=== PATIENT | male | born 1970 | race Caucasian/White ===

== ENCOUNTER 2023-07-24 17:57 | Emergency (ER) | payer BC ==
[~2023-07-24] VITALS: Ht 188 cm; Wt 127.0 kg
[2023-07-24 18:14] VITALS: BP 139/86
[2023-07-24] MEDS ORDERED: Bactrim Ds Tab1 EACH PO (18:56)
== END 2023-07-24 19:37 | disposition home or self-care (01) ==
LOC: ER 17:57
DX: L03.022 Acute lymphangitis of left finger (principal); L03.012 Cellulitis of left finger; E11.65 Type 2 diabetes mellitus with hyperglycemia
CPT/HCPCS: 82947; 99283; A9270

== ENCOUNTER 2024-06-17 01:11 | Day surgery (SDC) | payer BC ==
[~2024-06-17 01:11] MED LIST: Bactrim Ds Tab1 EACH PO; CEPH500 PO; GLIP10 PO; Lisinopril2.5 MG; METFORMIN HCL500 M1 PO; METFORMIN HCL500 M2 PO; METO25ER PO; PIOGLITAZONE HC30 M1 PO; Prinivil10 MG PO; SULTRIDS PO; Simvastatin40 MG PO; TADALAFIL20 M1 PO; TRAM50 PO; XARELTO20 MG PO
[2024-06-17] MEDS ORDERED: DAPTOMYCIN IV SCH (06:00)
[2024-06-17] MEDS ORDERED: NS IV SCH (06:00)
[2024-06-17] MEDS ORDERED: ACET500 PO (10:12)
[2024-06-17] MEDS ORDERED: Amiodarone HCl200 MG PO (10:13)
[2024-06-17] MEDS ORDERED: Aspir 8181 MG PO (10:14)
[2024-06-17] MEDS ORDERED: ATOR40TA PO (10:14)
[2024-06-17] MEDS ORDERED: Calcium Carbon500 MG PO (10:15)
[2024-06-17] MEDS ORDERED: CUBICIN RF500 M1 IV (10:16)
[2024-06-17] MEDS ORDERED: DICLOFENAC SOD100 GM TOP (10:17)
[2024-06-17] MEDS ORDERED: DOXA4 PO (10:18)
[2024-06-17] MEDS ORDERED: BASAGLAR K100 UNIT/1 SC (10:19)
[2024-06-17] MEDS ORDERED: HUMALOG KW100 UNIT/1 SC (10:20)
[2024-06-17] MEDS ORDERED: LIDO700A20 TOP (10:21)
[2024-06-17] MEDS ORDERED: MAGNESIUM OXID500 MG PO (10:22)
[2024-06-17] MEDS ORDERED: MIRT15 PO (10:24)
[2024-06-17 10:54] VITALS: BP 110/70
== END 2024-06-17 11:22 | disposition home or self-care (01) ==
LOC: ATC 01:11
DX: G06.1 Intraspinal abscess and granuloma (principal); I48.91 Unspecified atrial fibrillation; E11.9 Type 2 diabetes mellitus without complications; Z79.84 Long term (current) use of oral hypoglycemic drugs; Z79.899 Other long term (current) drug therapy
CPT/HCPCS: 96365; J0878

== ENCOUNTER 2024-06-18 10:31 | Day surgery (SDC) | payer BC ==
[~2024-06-18 10:31] MED LIST changes: +ACET500 PO; +ATOR40TA PO; +Amiodarone HCl200 MG PO; +Aspir 8181 MG PO; +BASAGLAR K100 UNIT/1 SC; +CUBICIN RF500 M1 IV; +Calcium Carbon500 MG PO; +DAPTOMYCIN IV SCH; +DICLOFENAC SOD100 GM TOP; +DOXA4 PO; +HUMALOG KW100 UNIT/1 SC; +LIDO700A20 TOP; +MAGNESIUM OXID500 MG PO; +MIRT15 PO; +NS IV SCH
[2024-06-18 10:38] VITALS: BP 103/68
== END 2024-06-18 11:11 | disposition home or self-care (01) ==
LOC: ATC 10:31
DX: G06.1 Intraspinal abscess and granuloma (principal); E11.9 Type 2 diabetes mellitus without complications; I48.91 Unspecified atrial fibrillation; Z79.899 Other long term (current) drug therapy; Z79.84 Long term (current) use of oral hypoglycemic drugs
CPT/HCPCS: 96365; J0878

== ENCOUNTER 2024-06-19 02:04 | Day surgery (SDC) | payer BC ==
[~2024-06-19 02:04] MED LIST changes: -DAPTOMYCIN IV SCH; -NS IV SCH
[2024-06-19] MEDS ORDERED: NS IV SCH (06:00)
[2024-06-19] MEDS ORDERED: DAPTOMYCIN IV SCH (06:00)
[2024-06-19 10:45] VITALS: BP 131/85
== END 2024-06-19 11:07 | disposition home or self-care (01) ==
LOC: ATC 02:04
DX: G06.1 Intraspinal abscess and granuloma (principal); I48.91 Unspecified atrial fibrillation; Z79.899 Other long term (current) drug therapy
CPT/HCPCS: 96365; J0878

== ENCOUNTER 2024-06-20 01:57 | Day surgery (SDC) | payer BC ==
[2024-06-20] MEDS ORDERED: DAPTOMYCIN IV SCH (06:00)
[2024-06-20] MEDS ORDERED: NS IV SCH (06:00)
[2024-06-20 10:45] VITALS: BP 117/70
== END 2024-06-20 11:17 | disposition home or self-care (01) ==
LOC: ATC 01:57
DX: G06.1 Intraspinal abscess and granuloma (principal); E11.69 Type 2 diabetes mellitus with other specified complication; M46.22 Osteomyelitis of vertebra, cervical region; D64.9 Anemia, unspecified; E66.9 Obesity, unspecified; Z68.32 Body mass index [BMI] 32.0-32.9, adult; Z79.4 Long term (current) use of insulin; Z79.84 Long term (current) use of oral hypoglycemic drugs; Z79.899 Other long term (current) drug therapy; Z86.73 Personal history of transient ischemic attack (TIA), and cerebral infarction without residual deficits
CPT/HCPCS: 96365; J0878

== ENCOUNTER 2024-06-21 02:47 | Day surgery (SDC) | payer BC ==
[2024-06-21] MEDS ORDERED: NS IV SCH (06:00)
[2024-06-21] MEDS ORDERED: DAPTOMYCIN IV SCH (06:00)
[2024-06-21 10:36] VITALS: BP 97/78
== END 2024-06-21 11:00 | disposition home or self-care (01) ==
LOC: ATC 02:47
DX: G06.1 Intraspinal abscess and granuloma (principal); M46.22 Osteomyelitis of vertebra, cervical region; I48.91 Unspecified atrial fibrillation; E11.9 Type 2 diabetes mellitus without complications; D64.9 Anemia, unspecified; Z79.01 Long term (current) use of anticoagulants; Z79.4 Long term (current) use of insulin; Z79.84 Long term (current) use of oral hypoglycemic drugs; Z79.899 Other long term (current) drug therapy; Z86.73 Personal history of transient ischemic attack (TIA), and cerebral infarction without residual deficits
CPT/HCPCS: 96365; J0878

== ENCOUNTER 2024-06-22 02:27 | Day surgery (SDC) | payer BC ==
[2024-06-22] MEDS ORDERED: DAPTOMYCIN IV SCH (06:00)
[2024-06-22] MEDS ORDERED: NS IV SCH (06:00)
[2024-06-22 10:41] VITALS: BP 105/68
== END 2024-06-22 11:07 | disposition home or self-care (01) ==
LOC: ATC 02:27
DX: G06.1 Intraspinal abscess and granuloma (principal); I48.91 Unspecified atrial fibrillation; E11.9 Type 2 diabetes mellitus without complications; Z79.899 Other long term (current) drug therapy
CPT/HCPCS: 96374; J0878

== ENCOUNTER 2024-06-23 00:42 | Day surgery (SDC) | payer BC ==
[2024-06-23] MEDS ORDERED: NS IV SCH (06:00)
[2024-06-23] MEDS ORDERED: DAPTOMYCIN IV SCH (06:00)
[2024-06-23] MEDS ORDERED: DAPTOmycin 900 MG in NS 50 ML IV SCH (07:00)
[2024-06-23 10:58] VITALS: BP 112/77
== END 2024-06-23 11:20 | disposition home or self-care (01) ==
LOC: ATC 00:42
DX: G06.1 Intraspinal abscess and granuloma (principal); I48.91 Unspecified atrial fibrillation; E11.9 Type 2 diabetes mellitus without complications; Z79.899 Other long term (current) drug therapy
CPT/HCPCS: 96365; J0878

== ENCOUNTER 2024-06-24 00:26 | Day surgery (SDC) | payer BC ==
[2024-06-24] MEDS ORDERED: DAPTOMYCIN IV SCH (06:00)
[2024-06-24] MEDS ORDERED: NS IV SCH (06:00)
[2024-06-24 10:39] VITALS: BP 111/82
== END 2024-06-24 10:58 | disposition home or self-care (01) ==
LOC: ATC 00:26
DX: G06.1 Intraspinal abscess and granuloma (principal); I48.91 Unspecified atrial fibrillation; E11.9 Type 2 diabetes mellitus without complications; D64.9 Anemia, unspecified; E66.9 Obesity, unspecified; Z79.01 Long term (current) use of anticoagulants; Z68.32 Body mass index [BMI] 32.0-32.9, adult; Z86.73 Personal history of transient ischemic attack (TIA), and cerebral infarction without residual deficits
CPT/HCPCS: 96365; J0878

== ENCOUNTER 2024-06-25 10:31 | Day surgery (SDC) | payer BC ==
[~2024-06-25 10:31] MED LIST changes: +DAPTOMYCIN IV SCH; +NS IV SCH
[2024-06-25 10:36] VITALS: BP 121/74
== END 2024-06-25 10:55 | disposition home or self-care (01) ==
LOC: ATC 10:31
DX: G06.1 Intraspinal abscess and granuloma (principal); I48.91 Unspecified atrial fibrillation; E11.9 Type 2 diabetes mellitus without complications
CPT/HCPCS: 96365; J0878

== ENCOUNTER 2024-06-26 02:22 | Day surgery (SDC) | payer BC ==
[~2024-06-26 02:22] MED LIST changes: -DAPTOMYCIN IV SCH; -NS IV SCH
[2024-06-26] MEDS ORDERED: NS IV SCH (06:00)
[2024-06-26] MEDS ORDERED: DAPTOMYCIN IV SCH (06:00)
[2024-06-26 10:38] VITALS: BP 97/58
== END 2024-06-26 11:03 | disposition home or self-care (01) ==
LOC: ATC 02:22
DX: G06.1 Intraspinal abscess and granuloma (principal); I48.91 Unspecified atrial fibrillation; E11.9 Type 2 diabetes mellitus without complications; D64.9 Anemia, unspecified; E66.9 Obesity, unspecified; Z68.32 Body mass index [BMI] 32.0-32.9, adult; Z79.84 Long term (current) use of oral hypoglycemic drugs; Z79.01 Long term (current) use of anticoagulants; Z79.4 Long term (current) use of insulin; Z79.899 Other long term (current) drug therapy; Z86.73 Personal history of transient ischemic attack (TIA), and cerebral infarction without residual deficits
CPT/HCPCS: 96365; J0878

== ENCOUNTER 2024-06-27 04:47 | Day surgery (SDC) | payer BC ==
[2024-06-27] MEDS ORDERED: DAPTOMYCIN IV SCH (06:00)
[2024-06-27] MEDS ORDERED: NS IV SCH (06:00)
[2024-06-27 10:35] VITALS: BP 96/69
== END 2024-06-27 10:55 | disposition home or self-care (01) ==
LOC: ATC 04:47
DX: G06.1 Intraspinal abscess and granuloma (principal); I48.91 Unspecified atrial fibrillation; E11.9 Type 2 diabetes mellitus without complications; E66.9 Obesity, unspecified; Z79.899 Other long term (current) drug therapy; Z79.4 Long term (current) use of insulin; Z79.84 Long term (current) use of oral hypoglycemic drugs
CPT/HCPCS: 96365; J0878

== ENCOUNTER 2024-06-29 03:31 | Day surgery (SDC) | payer BC ==
[2024-06-29] MEDS ORDERED: DAPTOMYCIN IV SCH (06:00)
[2024-06-29] MEDS ORDERED: NS IV SCH (06:00)
[2024-06-29 10:46] VITALS: BP 116/73
== END 2024-06-29 11:18 | disposition home or self-care (01) ==
LOC: ATC 03:31
DX: G06.1 Intraspinal abscess and granuloma (principal); I48.91 Unspecified atrial fibrillation; E11.9 Type 2 diabetes mellitus without complications; Z79.899 Other long term (current) drug therapy
CPT/HCPCS: 96365; J0878

== ENCOUNTER 2024-06-30 02:47 | Day surgery (SDC) | payer BC ==
[2024-06-30] MEDS ORDERED: DAPTOMYCIN IV SCH (06:00)
[2024-06-30] MEDS ORDERED: NS IV SCH (06:00)
[2024-06-30 10:37] VITALS: BP 122/81
== END 2024-06-30 11:00 | disposition home or self-care (01) ==
LOC: ATC 02:47
DX: G06.1 Intraspinal abscess and granuloma (principal); I48.91 Unspecified atrial fibrillation; E11.9 Type 2 diabetes mellitus without complications; D64.9 Anemia, unspecified; Z79.84 Long term (current) use of oral hypoglycemic drugs; Z79.4 Long term (current) use of insulin; Z79.01 Long term (current) use of anticoagulants; Z86.73 Personal history of transient ischemic attack (TIA), and cerebral infarction without residual deficits
CPT/HCPCS: 96365; J0878

== ENCOUNTER 2024-07-01 00:05 | Day surgery (SDC) | payer BC ==
[2024-07-01] MEDS ORDERED: NS IV SCH (06:00)
[2024-07-01] MEDS ORDERED: DAPTOMYCIN IV SCH (06:00)
[2024-07-01 10:41] VITALS: BP 108/73
== END 2024-07-01 11:05 | disposition home or self-care (01) ==
LOC: ATC 00:05
DX: G06.1 Intraspinal abscess and granuloma (principal); E11.9 Type 2 diabetes mellitus without complications; I48.91 Unspecified atrial fibrillation; Z79.01 Long term (current) use of anticoagulants; Z79.4 Long term (current) use of insulin; Z79.84 Long term (current) use of oral hypoglycemic drugs; Z79.899 Other long term (current) drug therapy; Z86.73 Personal history of transient ischemic attack (TIA), and cerebral infarction without residual deficits
CPT/HCPCS: 96365; J0878

== ENCOUNTER 2024-07-02 10:27 | Day surgery (SDC) | payer BC ==
[~2024-07-02 10:27] MED LIST changes: +DAPTOMYCIN IV SCH; +NS IV SCH
[2024-07-02 10:38] VITALS: BP 122/77
== END 2024-07-02 11:00 | disposition home or self-care (01) ==
LOC: ATC 10:27
DX: G06.1 Intraspinal abscess and granuloma (principal); E11.9 Type 2 diabetes mellitus without complications; I48.91 Unspecified atrial fibrillation; D64.9 Anemia, unspecified; Z79.01 Long term (current) use of anticoagulants; Z86.73 Personal history of transient ischemic attack (TIA), and cerebral infarction without residual deficits
CPT/HCPCS: 96365; J0878

== ENCOUNTER 2024-07-03 01:48 | Day surgery (SDC) | payer BC ==
[~2024-07-03 01:48] MED LIST changes: -DAPTOMYCIN IV SCH; -NS IV SCH
[2024-07-03] MEDS ORDERED: NS IV SCH (06:00)
[2024-07-03] MEDS ORDERED: DAPTOMYCIN IV SCH (06:00)
[2024-07-03 11:01] VITALS: BP 98/66
== END 2024-07-03 11:01 | disposition home or self-care (01) ==
LOC: ATC 01:48
DX: G06.1 Intraspinal abscess and granuloma (principal); I48.91 Unspecified atrial fibrillation; E11.9 Type 2 diabetes mellitus without complications; D64.9 Anemia, unspecified; Z79.01 Long term (current) use of anticoagulants; Z86.73 Personal history of transient ischemic attack (TIA), and cerebral infarction without residual deficits
CPT/HCPCS: 96365; J0878

== ENCOUNTER 2024-07-04 01:56 | Day surgery (SDC) | payer BC ==
[2024-07-04] MEDS ORDERED: NS IV SCH (06:00)
[2024-07-04] MEDS ORDERED: DAPTOMYCIN IV SCH (06:00)
[2024-07-04 10:39] VITALS: BP 118/83
== END 2024-07-04 11:02 | disposition home or self-care (01) ==
LOC: ATC 01:56
DX: G06.1 Intraspinal abscess and granuloma (principal); I48.91 Unspecified atrial fibrillation; E11.9 Type 2 diabetes mellitus without complications; Z79.899 Other long term (current) drug therapy
CPT/HCPCS: 96365; J0878

== ENCOUNTER 2024-07-05 04:05 | Day surgery (SDC) | payer BC ==
[2024-07-05] MEDS ORDERED: DAPTOMYCIN IV SCH (06:00)
[2024-07-05] MEDS ORDERED: NS IV SCH (06:00)
[2024-07-05 10:45] VITALS: BP 123/82
== END 2024-07-05 11:15 | disposition home or self-care (01) ==
LOC: ATC 04:05
DX: G06.1 Intraspinal abscess and granuloma (principal); I48.91 Unspecified atrial fibrillation; E11.9 Type 2 diabetes mellitus without complications; D64.9 Anemia, unspecified; Z79.01 Long term (current) use of anticoagulants; Z79.4 Long term (current) use of insulin; Z79.84 Long term (current) use of oral hypoglycemic drugs; Z79.899 Other long term (current) drug therapy; Z86.73 Personal history of transient ischemic attack (TIA), and cerebral infarction without residual deficits
CPT/HCPCS: 96365; J0878

== ENCOUNTER 2024-07-06 01:48 | Day surgery (SDC) | payer BC ==
[2024-07-06] MEDS ORDERED: NS IV SCH (06:00)
[2024-07-06] MEDS ORDERED: DAPTOMYCIN IV SCH (06:00)
[2024-07-06 10:38] VITALS: BP 123/86
== END 2024-07-06 11:05 | disposition home or self-care (01) ==
LOC: ATC 01:48
DX: G06.1 Intraspinal abscess and granuloma (principal); I48.91 Unspecified atrial fibrillation; E11.9 Type 2 diabetes mellitus without complications; D50.9 Iron deficiency anemia, unspecified; E66.9 Obesity, unspecified; Z68.32 Body mass index [BMI] 32.0-32.9, adult; Z79.01 Long term (current) use of anticoagulants; Z79.84 Long term (current) use of oral hypoglycemic drugs; Z79.899 Other long term (current) drug therapy; Z86.73 Personal history of transient ischemic attack (TIA), and cerebral infarction without residual deficits
CPT/HCPCS: 96365; J0878

== ENCOUNTER 2024-07-07 04:27 | Day surgery (SDC) | payer BC ==
[2024-07-07] MEDS ORDERED: DAPTOMYCIN IV SCH (06:00)
[2024-07-07] MEDS ORDERED: NS IV SCH (06:00)
[2024-07-07 10:39] VITALS: BP 119/59
== END 2024-07-07 11:00 | disposition home or self-care (01) ==
LOC: ATC 04:27
DX: G06.1 Intraspinal abscess and granuloma (principal); E11.9 Type 2 diabetes mellitus without complications; I48.91 Unspecified atrial fibrillation; E66.811 Obesity, class 1; Z68.32 Body mass index [BMI] 32.0-32.9, adult; Z79.84 Long term (current) use of oral hypoglycemic drugs; Z79.01 Long term (current) use of anticoagulants; Z79.4 Long term (current) use of insulin; Z79.899 Other long term (current) drug therapy; Z86.73 Personal history of transient ischemic attack (TIA), and cerebral infarction without residual deficits
CPT/HCPCS: 96365; J0878

== ENCOUNTER 2024-07-10 00:39 | Day surgery (SDC) | payer BC ==
[2024-07-10] MEDS ORDERED: NS IV SCH (06:00)
[2024-07-10] MEDS ORDERED: DAPTOMYCIN IV SCH (06:00)
[2024-07-10 10:56] VITALS: BP 106/74
== END 2024-07-10 11:08 | disposition home or self-care (01) ==
LOC: ATC 00:39
DX: G06.1 Intraspinal abscess and granuloma (principal); E11.9 Type 2 diabetes mellitus without complications; I48.91 Unspecified atrial fibrillation; Z79.01 Long term (current) use of anticoagulants; Z79.4 Long term (current) use of insulin; Z79.84 Long term (current) use of oral hypoglycemic drugs; Z79.899 Other long term (current) drug therapy; Z86.73 Personal history of transient ischemic attack (TIA), and cerebral infarction without residual deficits
CPT/HCPCS: 96365; J0878

== ENCOUNTER 2024-07-11 02:47 | Day surgery (SDC) | payer BC ==
[2024-07-11] MEDS ORDERED: DAPTOMYCIN IV SCH (07:15)
[2024-07-11] MEDS ORDERED: NS IV SCH (07:15)
[2024-07-11 10:54] VITALS: BP 107/79
== END 2024-07-11 11:20 | disposition home or self-care (01) ==
LOC: ATC 02:47
DX: G06.1 Intraspinal abscess and granuloma (principal); E11.9 Type 2 diabetes mellitus without complications; I48.91 Unspecified atrial fibrillation; D64.9 Anemia, unspecified; Z79.4 Long term (current) use of insulin; Z79.84 Long term (current) use of oral hypoglycemic drugs; Z79.899 Other long term (current) drug therapy; Z86.73 Personal history of transient ischemic attack (TIA), and cerebral infarction without residual deficits
CPT/HCPCS: 96365; J0878

== ENCOUNTER 2024-07-12 03:53 | Day surgery (SDC) | payer BC ==
[2024-07-12] MEDS ORDERED: DAPTOMYCIN IV SCH (06:00)
[2024-07-12] MEDS ORDERED: NS IV SCH (06:00)
[2024-07-12 10:35] VITALS: BP 129/85
== END 2024-07-12 10:59 | disposition home or self-care (01) ==
LOC: ATC 03:53
DX: G06.1 Intraspinal abscess and granuloma (principal); E11.9 Type 2 diabetes mellitus without complications; I48.91 Unspecified atrial fibrillation; Z79.899 Other long term (current) drug therapy
CPT/HCPCS: 96365; J0878

== ENCOUNTER 2024-07-13 05:19 | Day surgery (SDC) | payer BC ==
[2024-07-13] MEDS ORDERED: NS IV SCH (06:00)
[2024-07-13] MEDS ORDERED: DAPTOMYCIN IV SCH (06:00)
[2024-07-13 10:43] VITALS: BP 123/84
== END 2024-07-13 11:09 | disposition home or self-care (01) ==
LOC: ATC 05:19
DX: G06.1 Intraspinal abscess and granuloma (principal); I48.91 Unspecified atrial fibrillation; E11.9 Type 2 diabetes mellitus without complications; Z79.899 Other long term (current) drug therapy
CPT/HCPCS: 96365; J0878

== ENCOUNTER 2024-07-14 03:31 | Day surgery (SDC) | payer BC ==
[2024-07-14] MEDS ORDERED: NS IV SCH (06:00)
[2024-07-14] MEDS ORDERED: DAPTOMYCIN IV SCH (06:00)
[2024-07-14 10:39] VITALS: BP 119/81
== END 2024-07-14 11:00 | disposition home or self-care (01) ==
LOC: ATC 03:31
DX: G06.1 Intraspinal abscess and granuloma (principal); I48.91 Unspecified atrial fibrillation; E11.9 Type 2 diabetes mellitus without complications; Z79.4 Long term (current) use of insulin; Z79.84 Long term (current) use of oral hypoglycemic drugs; Z79.899 Other long term (current) drug therapy; D64.9 Anemia, unspecified
CPT/HCPCS: 96365; J0878

== ENCOUNTER 2024-07-15 02:14 | Day surgery (SDC) | payer BC ==
[2024-07-15] MEDS ORDERED: DAPTOMYCIN IV SCH (06:00)
[2024-07-15] MEDS ORDERED: NS IV SCH (06:00)
[2024-07-15 10:48] VITALS: BP 109/67
== END 2024-07-15 11:29 | disposition home or self-care (01) ==
LOC: ATC 02:14
DX: G06.1 Intraspinal abscess and granuloma (principal); I48.91 Unspecified atrial fibrillation; E11.9 Type 2 diabetes mellitus without complications; Z79.4 Long term (current) use of insulin; Z79.84 Long term (current) use of oral hypoglycemic drugs; Z79.899 Other long term (current) drug therapy
CPT/HCPCS: 96365; J0878

== ENCOUNTER 2024-07-16 10:27 | Day surgery (SDC) | payer BC ==
[~2024-07-16 10:27] MED LIST changes: +DAPTOMYCIN IV SCH; +NS IV SCH
[2024-07-16 10:36] VITALS: BP 119/67
== END 2024-07-16 11:01 | disposition home or self-care (01) ==
LOC: ATC 10:27
DX: E11.69 Type 2 diabetes mellitus with other specified complication (principal); M86.9 Osteomyelitis, unspecified; G06.1 Intraspinal abscess and granuloma; I48.91 Unspecified atrial fibrillation; Z79.01 Long term (current) use of anticoagulants; Z79.4 Long term (current) use of insulin; Z79.899 Other long term (current) drug therapy
CPT/HCPCS: 96365; J0878

== ENCOUNTER 2024-07-17 01:41 | Day surgery (SDC) | payer BC ==
[~2024-07-17 01:41] MED LIST changes: -DAPTOMYCIN IV SCH; -NS IV SCH
[2024-07-17] MEDS ORDERED: DAPTOMYCIN IV SCH (06:00)
[2024-07-17] MEDS ORDERED: NS IV SCH (06:00)
[2024-07-17 10:45] VITALS: BP 110/74
== END 2024-07-17 11:05 | disposition home or self-care (01) ==
LOC: ATC 01:41
DX: G06.1 Intraspinal abscess and granuloma (principal); I48.91 Unspecified atrial fibrillation; E11.69 Type 2 diabetes mellitus with other specified complication; E66.9 Obesity, unspecified; M46.22 Osteomyelitis of vertebra, cervical region; Z79.899 Other long term (current) drug therapy; Z79.84 Long term (current) use of oral hypoglycemic drugs
CPT/HCPCS: J0878

== ENCOUNTER 2024-07-18 01:41 | Day surgery (SDC) | payer BC ==
[2024-07-18] MEDS ORDERED: NS IV SCH (06:00)
[2024-07-18] MEDS ORDERED: DAPTOMYCIN IV SCH (06:00)
[2024-07-18 10:46] VITALS: BP 103/71
[2024-07-18 11:04] LABS: BASOPHILS ABSOLUTE AUTO 0.09 K/mm3 (0.00-0.23); BASOPHILS PERCENT AUTO 1 % (0-2); EOSINOPHILS PERCENT AUTO 10 % (0-6); Hematocrit 34.8 % (37.0-53.0); Hemoglobin 11.5 g/dL (13.5-17.5); IMMATURE GRAN ABSOLUTE AUTO 0.09 K/mm3 (0.00-0.10); IMMATURE GRAN PERCENT AUTO 1 % (0-1); LYMPHOCYTES ABSOLUTE AUTO 2.03 K/mm3 (0.84-5.20); LYMPHOCYTES PERCENT AUTO 28 % (21-46); MONOCYTES ABSOLUTE AUTO 0.48 K/mm3 (0.16-1.47); MONOCYTES PERCENT AUTO 7 % (4-13); Mean Corpuscular HGB 28.8 pg (26.0-34.0); Mean Corpuscular Volume 87 fL (80-100); Mean Platelet Volume 9.2 fL (9.1-12.4); NEUTROPHILS ABSOLUTE AUTO 3.99 K/mm3 (1.96-9.15); NEUTROPHILS PERCENT AUTO 54 % (41-73); Platelet Count 264 K/mm3 (150-400); RDW Coefficient Variation 15.2 % (11.7-14.2); RDW Standard Deviation 48.8 fL (35.1-46.3); Red Blood Cell Count 3.99 M/mm3 (4.30-5.90); White Blood Cell Count 7.38 K/mm3 (4.00-11.30)
[2024-07-18 11:34] LABS: C-REACTIVE PROTEIN, EXT RANGE 0.521 mg/dL (0.000-0.300)
[2024-07-18 11:35] LABS: Potassium, Blood 4.7 mmol/L (3.5-5.5)
[2024-07-18 16:15] LABS: Albumin, Blood 3.2 g/dL (3.4-5.0); Albumin/Globulin Ratio 0.8 (0.8-1.8); Bilirubin, Total 0.7 mg/dL (0.1-1.0); Globulin, Blood 4.2 g/dL (2.2-4.0); Total Protein, Blood 7.4 g/dL (6.4-8.2)
== END 2024-07-18 11:06 | disposition home or self-care (01) ==
LOC: ATC 01:41
PROVIDERS: Internal Medicine Infectious Disease
DX: E11.69 Type 2 diabetes mellitus with other specified complication (principal); M46.22 Osteomyelitis of vertebra, cervical region; G06.1 Intraspinal abscess and granuloma; I48.91 Unspecified atrial fibrillation; D64.9 Anemia, unspecified; Z79.01 Long term (current) use of anticoagulants; Z79.4 Long term (current) use of insulin; Z79.84 Long term (current) use of oral hypoglycemic drugs; Z86.73 Personal history of transient ischemic attack (TIA), and cerebral infarction without residual deficits; Z79.899 Other long term (current) drug therapy
CPT/HCPCS: 80053; 82550; 85025; 86140; 96365; J0878

== ENCOUNTER 2024-07-19 07:04 | Day surgery (SDC) | payer BC ==
[2024-07-19 10:43] VITALS: BP 132/84
[2024-07-20] MEDS ORDERED: NS IV SCH (06:00)
[2024-07-20] MEDS ORDERED: DAPTOMYCIN IV SCH (06:00)
== END 2024-07-19 11:10 | disposition home or self-care (01) ==
LOC: ATC 07:04
DX: E11.69 Type 2 diabetes mellitus with other specified complication (principal); M46.22 Osteomyelitis of vertebra, cervical region; G06.1 Intraspinal abscess and granuloma; I48.91 Unspecified atrial fibrillation; Z79.01 Long term (current) use of anticoagulants; Z79.84 Long term (current) use of oral hypoglycemic drugs; Z79.899 Other long term (current) drug therapy; Z86.73 Personal history of transient ischemic attack (TIA), and cerebral infarction without residual deficits
CPT/HCPCS: 96365; J0878

== ENCOUNTER 2024-07-20 03:10 | Day surgery (SDC) | payer BC ==
[2024-07-20] MEDS ORDERED: NS IV SCH (06:00)
[2024-07-20] MEDS ORDERED: DAPTOMYCIN IV SCH (06:00)
[2024-07-20 11:21] VITALS: BP 137/76
== END 2024-07-20 11:22 | disposition home or self-care (01) ==
LOC: ATC 03:10
DX: E11.69 Type 2 diabetes mellitus with other specified complication (principal); M46.22 Osteomyelitis of vertebra, cervical region; G06.1 Intraspinal abscess and granuloma; I48.91 Unspecified atrial fibrillation; Z79.01 Long term (current) use of anticoagulants; Z86.73 Personal history of transient ischemic attack (TIA), and cerebral infarction without residual deficits
CPT/HCPCS: 96365; J0878

== ENCOUNTER 2024-07-28 00:39 | Day surgery (SDC) | payer BC ==
[2024-07-28] MEDS ORDERED: NS IV SCH (06:00)
[2024-07-28] MEDS ORDERED: DAPTOMYCIN IV SCH (06:00)
[2024-07-28 10:36] VITALS: BP 131/85
== END 2024-07-28 10:57 | disposition home or self-care (01) ==
LOC: ATC 00:39
DX: E11.69 Type 2 diabetes mellitus with other specified complication (principal); M46.22 Osteomyelitis of vertebra, cervical region; G06.1 Intraspinal abscess and granuloma; I48.91 Unspecified atrial fibrillation; Z79.01 Long term (current) use of anticoagulants; Z79.82 Long term (current) use of aspirin; Z79.84 Long term (current) use of oral hypoglycemic drugs; Z79.4 Long term (current) use of insulin; Z79.899 Other long term (current) drug therapy; Z86.73 Personal history of transient ischemic attack (TIA), and cerebral infarction without residual deficits
CPT/HCPCS: 96365; J0878

== ENCOUNTER 2024-07-29 02:01 | Day surgery (SDC) | payer BC ==
[2024-07-29] MEDS ORDERED: NS IV SCH (06:00)
[2024-07-29] MEDS ORDERED: DAPTOMYCIN IV SCH (06:00)
[2024-07-29 10:39] VITALS: BP 114/85
== END 2024-07-29 10:58 | disposition home or self-care (01) ==
LOC: ATC 02:01
DX: E11.69 Type 2 diabetes mellitus with other specified complication (principal); M86.8X8 Other osteomyelitis, other site; I48.91 Unspecified atrial fibrillation; M46.22 Osteomyelitis of vertebra, cervical region
CPT/HCPCS: 96365; J0878

== ENCOUNTER 2024-07-30 05:27 | Day surgery (SDC) | payer BC ==
[2024-07-30] MEDS ORDERED: NS IV SCH (06:00)
[2024-07-30] MEDS ORDERED: DAPTOMYCIN IV SCH (06:00)
[2024-07-30 10:36] VITALS: BP 133/85
== END 2024-07-30 10:52 | disposition home or self-care (01) ==
LOC: ATC 05:27
DX: E11.69 Type 2 diabetes mellitus with other specified complication (principal); M86.9 Osteomyelitis, unspecified; I48.91 Unspecified atrial fibrillation; Z79.01 Long term (current) use of anticoagulants; Z79.899 Other long term (current) drug therapy
CPT/HCPCS: 96365; J0878

== ENCOUNTER 2024-07-31 02:12 | Day surgery (SDC) | payer BC ==
[2024-07-31] MEDS ORDERED: DAPTOMYCIN IV SCH (06:00)
[2024-07-31] MEDS ORDERED: NS IV SCH (06:00)
[2024-07-31 10:56] VITALS: BP 102/74
== END 2024-07-31 11:04 | disposition home or self-care (01) ==
LOC: ATC 02:12
DX: E11.69 Type 2 diabetes mellitus with other specified complication (principal); M86.8X8 Other osteomyelitis, other site; I48.91 Unspecified atrial fibrillation; Z79.899 Other long term (current) drug therapy
CPT/HCPCS: 96365; J0878

== ENCOUNTER 2024-08-01 00:54 | Day surgery (SDC) | payer BC ==
[2024-08-01] MEDS ORDERED: DAPTOMYCIN IV SCH (06:00)
[2024-08-01] MEDS ORDERED: NS IV SCH (06:00)
[2024-08-01 11:06] VITALS: BP 116/83
[2024-08-01 11:28] LABS: BASOPHILS ABSOLUTE AUTO 0.08 K/mm3 (0.00-0.23); BASOPHILS PERCENT AUTO 1 % (0-2); EOSINOPHILS PERCENT AUTO 7 % (0-6); Hematocrit 35.7 % (37.0-53.0); Hemoglobin 11.9 g/dL (13.5-17.5); IMMATURE GRAN ABSOLUTE AUTO 0.05 K/mm3 (0.00-0.10); IMMATURE GRAN PERCENT AUTO 1 % (0-1); LYMPHOCYTES PERCENT AUTO 30 % (21-46); MONOCYTES ABSOLUTE AUTO 0.56 K/mm3 (0.16-1.47); MONOCYTES PERCENT AUTO 7 % (4-13); Mean Corpuscular HGB Conc 33.3 g/dL (31.5-36.5); Mean Corpuscular Volume 87 fL (80-100); Mean Platelet Volume 9.6 fL (9.1-12.4); NEUTROPHILS ABSOLUTE AUTO 4.07 K/mm3 (1.96-9.15); NEUTROPHILS PERCENT AUTO 54 % (41-73); Platelet Count 282 K/mm3 (150-400); RDW Coefficient Variation 14.9 % (11.7-14.2); Red Blood Cell Count 4.11 M/mm3 (4.30-5.90); White Blood Cell Count 7.56 K/mm3 (4.00-11.30)
[2024-08-01 11:54] LABS: C-REACTIVE PROTEIN, EXT RANGE 0.604 mg/dL (0.000-0.300)
[2024-08-01 12:00] LABS: Albumin, Blood 3.4 g/dL (3.4-5.0); Albumin/Globulin Ratio 0.8 (0.8-1.8); Bilirubin, Total 0.7 mg/dL (0.1-1.0); Bun/Creatinine Ratio 22.3 (12.0-20.0); Calcium, Blood 9.4 mg/dL (8.5-10.1); Creatinine, Blood 0.94 mg/dL (0.60-1.20); Globulin, Blood 4.3 g/dL (2.2-4.0); Potassium, Blood 4.5 mmol/L (3.5-5.5); Total Protein, Blood 7.7 g/dL (6.4-8.2)
== END 2024-08-01 11:15 | disposition home or self-care (01) ==
LOC: ATC 00:54
PROVIDERS: Internal Medicine Infectious Disease
DX: E11.69 Type 2 diabetes mellitus with other specified complication (principal); M86.9 Osteomyelitis, unspecified; I48.91 Unspecified atrial fibrillation; E66.811 Obesity, class 1; D64.9 Anemia, unspecified; Z79.84 Long term (current) use of oral hypoglycemic drugs; Z79.01 Long term (current) use of anticoagulants; Z79.899 Other long term (current) drug therapy
CPT/HCPCS: 80053; 82550; 85025; 86140; 96365; J0878

== ENCOUNTER 2024-08-02 00:48 | Day surgery (SDC) | payer BC ==
[2024-08-02] MEDS ORDERED: DAPTOMYCIN IV SCH (06:00)
[2024-08-02] MEDS ORDERED: NS IV SCH (06:00)
[2024-08-02 09:24] VITALS: BP 122/79
== END 2024-08-02 09:43 | disposition home or self-care (01) ==
LOC: ATC 00:48
DX: E11.69 Type 2 diabetes mellitus with other specified complication (principal); M86.9 Osteomyelitis, unspecified; I48.91 Unspecified atrial fibrillation; Z79.899 Other long term (current) drug therapy
CPT/HCPCS: 96365; J0878

== ENCOUNTER 2024-08-03 00:19 | Day surgery (SDC) | payer BC ==
[2024-08-03] MEDS ORDERED: DAPTOMYCIN IV SCH (06:00)
[2024-08-03] MEDS ORDERED: NS IV SCH (06:00)
[2024-08-03 10:41] VITALS: BP 101/81
== END 2024-08-03 10:57 | disposition home or self-care (01) ==
LOC: ATC 00:19
DX: E11.69 Type 2 diabetes mellitus with other specified complication (principal); M86.9 Osteomyelitis, unspecified; I48.91 Unspecified atrial fibrillation; D64.9 Anemia, unspecified; Z79.01 Long term (current) use of anticoagulants; Z79.899 Other long term (current) drug therapy; Z79.84 Long term (current) use of oral hypoglycemic drugs
CPT/HCPCS: 96365; J0878

== ENCOUNTER 2024-08-05 03:49 | Day surgery (SDC) | payer BC ==
[2024-08-05 14:50] VITALS: BP 125/77
== END 2024-08-05 14:58 | disposition home or self-care (01) ==
LOC: ATC 03:49
DX: E11.69 Type 2 diabetes mellitus with other specified complication (principal); M46.22 Osteomyelitis of vertebra, cervical region; G06.1 Intraspinal abscess and granuloma; I48.91 Unspecified atrial fibrillation; Z79.01 Long term (current) use of anticoagulants; Z79.4 Long term (current) use of insulin; Z79.84 Long term (current) use of oral hypoglycemic drugs; Z86.73 Personal history of transient ischemic attack (TIA), and cerebral infarction without residual deficits
CPT/HCPCS: 99211